=== PATIENT | female | born 1975 | race Caucasian/White ===

== ENCOUNTER 2018-07-22 20:44 | Emergency (ER) | payer OTHER ==
[~2018-07-22] VITALS: Ht 167.6 cm; Wt 99.8 kg
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
[2018-07-22] MEDS ORDERED: KETOROLAC 60 MG/2 ML VIAL IM ONE (22:15)
[2018-07-22] MEDS ORDERED: RX-HYDROCODONE/APAP 5/325 MG #4 TAB PK PO PRN (22:15)
[2018-07-22] MEDS ORDERED: CYCLOBENZAPRINE 10 MG (FLEXERIL) TAB PO SCH (22:15)
[2018-07-22] MEDS ORDERED: TETANUS,DIPTH,PERTUSS P/F (BOOSTRIX) 0.5 ML VIAL IM ONE (22:15)
[2018-07-22] MEDS ORDERED: CYCL10TA9 PO (22:16)
[2018-07-22] MEDS ORDERED: ACHD5005 PO (22:16)
[2018-07-22] MEDS ORDERED: IBUP-1780 PO (22:16)
[2018-07-22 22:38] VITALS: BP 136/73
== END 2018-07-22 22:44 | disposition home or self-care (01) ==
LOC: ER FS 20:46
DX: S46.812A Strain of other muscles, fascia and tendons at shoulder and upper arm level, left arm, initial encounter (principal); S50.812A Abrasion of left forearm, initial encounter; F17.210 Nicotine dependence, cigarettes, uncomplicated; V86.05XA Driver of 3- or 4- wheeled all-terrain vehicle (ATV) injured in traffic accident, initial encounter
CPT/HCPCS: 73030; 90715

== ENCOUNTER → 2019-01-19 | Outpatient (CLI) | payer OTHER ==
[~2019-01-19] MED LIST: ACHD5005 PO; CYCL10TA9 PO; IBUP-1780 PO
--- NOTE | 2019-01-19 16:29 | Diagnostic Imaging Report ---
INDICATION: Right shoulder injury. FINDINGS: Two views of the right shoulder show no fracture, dislocation, or other acute abnormalities. IMPRESSION: Negative right shoulder. Dictated by: Dictated on workstation # [id number]
== END ==
LOC: RAD FS 15:44
PROVIDERS: ATTEND Nurse Practitioner Family
DX: S49.91XA Unspecified injury of right shoulder and upper arm, initial encounter (principal)
CPT/HCPCS: 73030

== ENCOUNTER → 2019-02-09 | Outpatient (CLI) | payer OTHER ==
--- NOTE | 2019-02-09 17:51 | Diagnostic Imaging Report ---
INDICATION: Right knee pain. Three views were obtained. FINDINGS: The alignment is normal. There are mild degenerative changes. There is no fracture or dislocation. The soft tissues are unremarkable. IMPRESSION: Mild degenerative changes; otherwise, unremarkable. Dictated by: Dictated on workstation # [id number]
== END ==
LOC: RAD FS 16:32
PROVIDERS: ATTEND Family Medicine
DX: M17.11 Unilateral primary osteoarthritis, right knee (principal)
CPT/HCPCS: 73562

== ENCOUNTER → 2019-02-23 | Outpatient (CLI) | payer OTHER ==
--- NOTE | 2019-02-23 13:37 | Diagnostic Imaging Report ---
INDICATION: Osteoarthritis. TIME OF EXAM: 10:43 AM 2 views of the patella were obtained. There is significant patellofemoral degenerative change. Large osteophyte along the lateral aspect of the patella is noted. Patellofemoral alignment is normal. No fractures are seen. There is no joint effusion. IMPRESSION: Patellofemoral degenerative change. No acute bony abnormality is detected. Dictated by: Dictated on workstation # [id number]
== END ==
LOC: RAD FS 10:36
PROVIDERS: ATTEND Nurse Practitioner
DX: M17.11 Unilateral primary osteoarthritis, right knee (principal)
CPT/HCPCS: 73560

== ENCOUNTER → 2019-03-25 | Outpatient (CLI) | payer OTHER ==
--- NOTE | 2019-03-25 11:31 | Diagnostic Imaging Report ---
EXAMINATION: Magnetic resonance imaging of the right knee without intravenous contrast. DATE: March 25, 2019. COMPARISON: Right knee radiographs February 09, 2019. INDICATION: 44-year-old female, right knee pain. TECHNIQUE: Multiplanar, multisequence noncontrast enhanced MR imaging was accomplished. FINDINGS: MENISCI: The medial meniscus is intact. The lateral meniscus is intact. LIGAMENTS AND TENDONS: The anterior and posterior cruciate ligaments are intact. The medial collateral ligament is intact. The iliotibial band, mid third lateral capsular ligament, fibular collateral ligament, biceps femoris tendon, and conjoined tendon are intact. The quadriceps tendon and patella ligament are intact. JOINT: There is approximately 50% generalized thinning of the patellar cartilage of the superficial irregularity of the cartilage. There is also mild generalized cartilage loss and irregularity of the femoral trochlea. The lateral compartment cartilage is grossly intact. There is mild generalized thinning of the medial compartment cartilage. There is no knee joint effusion, prominent synovitis, or intra-articular body. BONE: There is degenerative related marrow edema in the patella. There is an ossification adjacent to the lateral patellar margin which is long-standing. There is no identified acute fracture. There is no evidence of osteonecrosis. BURSAE AND SOFT TISSUES: There is no Bakers cyst. There is nonspecific prepatellar subcutaneous edema. IMPRESSION: 1. Intact menisci and cruciate ligaments. Additional ligaments and tendons are intact. 2. Moderate patellofemoral and mild medial compartment osteoarthritis without knee joint effusion. 3. 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 No acute fracture or evidence of osteonecrosis. Dictated by: Dictated on workstation # [id number]
== END ==
LOC: RAD 09:59
PROVIDERS: ATTEND Nurse Practitioner
DX: M23.41 Loose body in knee, right knee (principal); M17.11 Unilateral primary osteoarthritis, right knee
CPT/HCPCS: 73721

== ENCOUNTER 2019-07-03 11:09 | Emergency (ER) | payer OTHER ==
[~2019-07-03] VITALS: Ht 170 cm; Wt 83.9 kg
--- OUTSIDE RECORDS SUMMARY | 2019-07-03 11:17 | XMS REPORT ---
Author Author GENE Griseldameghan David [facility] Address [address] [place] [address] Care Team Providers Care Education Specialist Name Role Phone YOEL MILLS Unavailable PROBLEMS Type Condition ICD9-CM Code CEM68-TS Code Onset Dates Condition S tatus SNOMED Code Problem Osteoarthritis of right knee 715.96 Jun, 2 0 [id number] Problem Plantar fasciitis of right foot 728.71 Sep, 0 [id number] Problem Vaginal pain 625.9 Nov, 0 3834 3000 Problem Acute sinusitis 461.9 Jan, 0 1 1366446 Problem Peroneal tendonitis M76.70 Sep, 0 84890280 Problem Tobacco use 305.1 16 May, 2016 0 32191 3000 Problem Other nonspecific abnormal cardiovascular system function study 794.39 0 439395408 Problem Abdominal pain, right lower quadrant R10.31 Sep, 0 212857069 Problem Asthma 493.90 May, 0 1324181 01 Problem Plantar fasciitis, right M72.2 Sep, 0 78976026 Problem Extrinsic asthma, unspecified J45.909 0 618149937 Problem Pain of right thumb 729.5 Jan, 0 77864028 Problem 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 Sep, 0 83256261 Problem Postoperative follow-up V67.00 Sep, 0 749794245 Problem Back pain with radiation 724.5 Nov, 0 134849405 Problem Posterior tibial tendonitis 726.72 Sep, 0 89942178 Problem Acute cholecystitis 575.0 0 51642014 Problem Polymyalgia rheumatica 725 0 23444946 Problem Extrinsic asthma, unspecified 493.00 0 983576627 Problem Plantar fasciitis of right foot M72.2 Sep, 0 47769038150804726 Problem Esophageal reflux 530.81 0 24 3104179 Problem Asthma J45.909 13 May, 2011 0 0826855 01 Problem Other nonspecific abnormal cardiovascular system function study R94.39 0 804530005 Problem Precordial pain R07.2 0 7188 4009 Problem Other synovitis and tenosynovitis M65.80 0 816306497 Problem Tobacco use Z72.0 May, 0 10037 3000 Problem Insufficiency of posterior tibialis tendon 727.89 18 Sep, 2014 0 Problem Acute cholecystitis K81.0 0 52621263 Problem Peroneal tendonitis 726.79 04 Sep, 2014 0 57299664 Problem Polymyalgia rheumatica M35.3 0 91466792 Problem Plantar fasciitis, right 728.71 18 Sep, 2014 0 16770351 Problem Adnexal cyst 625.8 03 Sep, 2012 0 9717 7968121893 Problem Osteoarthritis of right knee M17.11 Jun, 2 0 774842661 Problem Back pain with radiation M54.9 Nov, 0 462195612 Problem Precordial pain 786.51 0 7188 4009 Problem Posterior tibial tendonitis M76.829 04 Sep, 2014 0 83471126 Problem OAB (overactive bladder) N32.81 Activ e 231484935 Problem Abdominal pain, right lower quadrant 789.03 02 Sep, 2012 0 568829462 Problem Vaginal pain R10.2 Nov, 0 3834 3000 Problem Pain of right thumb M79.644 Jan, 0 29882706 Problem Other synovitis and tenosynovitis 727.09 0 239553648 Problem Esophageal reflux K21.9 0 24 4062498 Problem Cigarette nicotine dependence, uncomplicated 305.1 May, 0 746178558 Problem Adnexal cyst N94.9 Sep, 0 9717 0845427990 Problem Acute sinusitis J01.90 Jan, 0 1 3718135 Problem Postoperative follow-up Z09 10 Sep, 2012 0 234878531 Problem Cigarette nicotine dependence, uncomplicated F17.2 10 May, 0 623309316 ALLERGIES No Known Allergies ENCOUNTERS Encounter Location Date Diagnosis [address] [id number] Jun, [address] [address] Jun, [address] [address] Jun, OAB (overactive bladder) N32.81 [facility] [address] [facility] [id number] [address] [place] [id number] Mar, [facility] [address] [facility] [id number] [address] [place] [id number] Jan, [facility] [address] [facility] [id number] [address] [place] [id number] Jan, [facility] [address] [facility] [id number] [address] [place] [phone] Jun, IMMUNIZATIONS No Known Immunizations SOCIAL HISTORY Never Assessed REASON FOR VISIT bladder issues PLAN OF CARE Activity Details Follow Up prn Reason: VITAL SIGNS Height 5'6" in 2018-06-11 Weight 216 lbs 2018-06-11 BMI 34.86 kg/m2 2018-06-11 Blood pressure systolic 116 mmHg 2018-06-11 Blood pressure diastolic 66 mmHg 2018-06-11 MEDICATIONS Medication Instructions Dosage Frequency Start Date End Date Duration S tatus Myrbetriq 25 MG Orally Once a day 1 tablet 24h Jun, 30 day(s) Active RESULTS Name Result Date Reference Range UA LONG DIP (IN HOUSE) Lot # [id number] Exp date 04/07/19 Clarity clear Color yellow Odor no GLU neg MARIAN neg KET neg SG 1.015 BLO trace-intact pH 6.0 Protein neg URO 0.2 NIT neg JOSSE neg Lot # [id number] Exp date 04/07/19 PROCEDURES Procedure Date Ordered Result Body Site URINALYSIS, AUTO, W/O SCOPE June 11, 2018 INSTRUCTIONS MEDICATIONS ADMINISTERED No Known Medications MEDICAL (GENERAL) HISTORY Type Description Date Surgical History hysterectomy
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
[2019-07-03 12:03] LABS: INR 0.9 (0.8-1.4); PROTHROMBIN TIME PATIENT 12.8 SEC (12.2-14.7)
[2019-07-03 12:04] LABS: BASOPHILS % (AUTO) 0 % (0-10); EOSINOPHILS % (AUTO) 2 % (0-10); HEMATOCRIT 37 % (35-52); HEMOGLOBIN 12.6 G/DL (11.5-16.0); LYMPHOCYTES % (AUTO) 15 % (12-44); MEAN CORPUSCULAR HEMOGLOBIN 32 PG (25-34); MEAN CORPUSCULAR HGB CONC 34 G/DL (32-36); MEAN CORPUSCULAR VOLUME 93 FL (80-99); MONOCYTES % (AUTO) 5 % (0-12); NEUTROPHILS % (AUTO) 77 % (42-75); PLATELET COUNT 277 10^3/uL (130-400); RED CELL DISTRIBUTION WIDTH 12.2 % (10.0-14.5); WHITE BLOOD COUNT 10.2 10^3/uL (4.3-11.0)
[2019-07-03 12:05] LABS: EOSINOPHILS # (AUTO) 0.2 10^3/uL (0.0-0.3); LYMPHOCYTES # (AUTO) 1.5 X 10^3 (1.0-4.0); MONOCYTES # (AUTO) 0.5 X 10^3 (0.0-1.0); NEUTROPHILS # (AUTO) 7.8 X 10^3 (1.8-7.8)
--- NOTE | 2019-07-03 12:05 | Diagnostic Imaging Report ---
Indication: Chest pain. Findings: Lungs clear. Heart and vessels normal. No failure, effusion or pneumothorax. Impression: No acute-appearing abnormality. Dictated by: Dictated on workstation # [id number]
[2019-07-03 12:12] LABS: POTASSIUM 3.8 MMOL/L (3.6-5.0); SODIUM 143 MMOL/L (135-145)
[2019-07-03 12:13] LABS: ALANINE AMINOTRANSFERASE 14 U/L (0-55); ALBUMIN 4.3 GM/DL (3.2-4.5); ALKALINE PHOSPHATASE 71 U/L (40-136); BILIRUBIN,TOTAL 0.4 MG/DL (0.1-1.0); BUN/CREATININE RATIO 26; CALCIUM 9.3 MG/DL (8.5-10.1); CARBON DIOXIDE 26 MMOL/L (21-32); CHLORIDE 104 MMOL/L (98-107); CREATININE SERUM 0.66 MG/DL (0.60-1.30); GFR ESTIMATED > 60; GLUCOSE 98 MG/DL (70-105); MAGNESIUM 1.8 MG/DL (1.6-2.4); TOTAL PROTEIN 6.9 GM/DL (6.4-8.2)
[2019-07-03] MEDS ORDERED: ANTACID SUSP 30 ML UDC (MYLANTA) PO ONE (12:15)
[2019-07-03] MEDS ORDERED: PANTOPRAZOLE 40 MG (PROTONIX) TAB PO ONE (12:15)
--- NOTE | 2019-07-03 12:23 | ED Cardiac General ---
History of Present Illness General Chief Complaint: Chest Pain Stated Complaint: CHEST PAIN; LT ARM NUMBNESS Source: patient Exam Limitations: no limitations History of Present Illness Date Seen by Provider: Jul 03, 2019 Time Seen by Provider: 11:40 Initial Comments 44-year-old female presents to the emergency room with 5 day history of chest pain and discomfort. Patient admits to having reflux esophagitis. She states the pain is been under anterior chest wall and on her left chest. She has no radiation to the back or to the left neck her left arm. He however states that her left arm sometimes is numb. Patient states that she did have a full cardiac workup including cardiac catheter a few years ago" and told this examiner that she had no evidence of cardiac disease. Patient does admit to smoking. She also has severe periodontal disease and multiple caries nonocclusive surfaces in her mouth. Patient denies any history of renal or cardiac disease. She does admit to having asthma in the past. Patient was strongly encouraged to stop smoking and diagnostic evaluation was pursued. Patient has given informed consent for diagnostic and therapeutic services. Timing/Duration: 1 week Severity: moderate Location: substernal, epigastric Activities at Onset: activity, other (ingestion of food) Prior CP/Workup: cardiac cath ("a few years ago" and patient reports no cardiopulmonary or coronary disease) Modifying Factors: improves with antacids (given in the emergency room) NTG SL RETORT ENGINEER: No ASA po RETORT ENGINEER: No (in light of reflux esopha) Associated Systoms: Chest Pain, Nausea/Vomiting (only nausea) Allergies and Home Medications Allergies Coded Allergies: No Known Drug Allergies (Unverified , 07/22/18) Home Medications Cyclobenzaprine HCl 10 Mg Tablet, 10 MG PO Q8H PRN for SPASMS Prescribed by: DONATO YARBROUGHRT on 07/22/182215 Hydrocodone Bit/Acetaminophen 1 Tab Tab, 1 EACH PO Q6H PRN for PAIN-SEVERE Prescribed by: DONATO YARBROUGHRT on 07/22/182215 Ibuprofen 800 Mg Tablet, 800 MG PO Q8H PRN for PAIN Prescribed by: DONATO YARBROUGHRT on 07/22/182215 Patient Home Medication List Home Medication List Reviewed: Yes Review of Systems Review of Systems Constitutional: malaise, weakness EENTM: No Symptoms Reported, Mouth Pain (very poor oral hygiene with multiple caries and periodontal disease) Respiratory: No Symptoms Reported Cardiovascular: See HPI, Chest Pain Gastrointestinal: Abdominal Pain, Nausea, Other (epigastric discomfort) Genitourinary: No Symptoms Reported Musculoskeletal: back pain Skin: no symptoms reported Psychiatric/Neurological: Anxiety Endocrine: No Symptoms Reported Hematologic/Lymphatic: No Symptoms Reported Past Hpqszjy-Treyrk-Idoxfq Hx Past Med/Social Hx: Reviewed Nursing Past Med/Soc Hx Patient Social History Alcohol Use: Occasionally Uses Recreational Drug Use: No Type Used: Cigarettes 2nd Hand Smoke Exposure: No Recent Foreign Travel: No Contact w/Someone Who Travel: No Recent Hopitalizations: No Seasonal Allergies Seasonal Allergies: No Past Medical History Surgeries: No Respiratory: No Cardiac: No Neurological: No Genitourinary: No Gastrointestinal: No Musculoskeletal: No Endocrine: No HEENT: No Cancer: No Psychosocial: No Integumentary: No Blood Disorders: No Physical Exam Vital Signs Capillary Refill : Height, Weight, BMI Height: 5'6.00" Weight: 220lbs. oz. 99.561175wb; BMI Method:Stated General Appearance: WD/WN (obese), Moderate Distress (from epigastric and anterior chest wall pain), Obese HEENT: PERRL/EOMI, TMs Normal, Normal ENT Inspection (with severe dental periodontal and carious lesions), Pharynx Normal Neck: Full Range of Motion, Normal Inspection, Non Tender, Supple Respiratory: Chest Non Tender, Lungs Clear, Normal Breath Sounds, No Accessory Muscle Use, No Respiratory Distress (patient has a history of smoking and demonstrates poor tolerance) Cardiovascular: Regular Rate, Rhythm, No Edema, No Gallop, No JVD, No Murmur, Normal Peripheral Pulses Gastrointestinal: Normal Bowel Sounds, No Organomegaly, No Pulsatile Mass, Non Tender, Soft Rectal: Normal Exam, Heme Negative Stool Neurologic/Psychiatric: Alert, Oriented x3, No Motor/Sensory Deficits, Normal Mood/Affect, medical reception II-XII Norm as Tested Skin: Normal Color, Warm/Dry Lymphatic: No Adenopathy Progress/Results/Core Measures Results/Orders Lab Results Laboratory Tests Test 07/03/19 11:22 07/03/19 12:21 Range/Units White Blood Count 10.2 4.3-11.0 10^3/uL Red Blood Count 3.96 L 4.35-5.85 10^6/uL Hemoglobin 12.6 11.5-16.0 G/DL Hematocrit 37 35-52 % Mean Corpuscular Volume 93 80-99 FL Mean Corpuscular Hemoglobin 32 25-34 PG Mean Corpuscular Hemoglobin Concent 34 32-36 G/DL Red Cell Distribution Width 12.2 10.0-14.5 % Platelet Count 277 130-400 10^3/uL Mean Platelet Volume 10.0 7.4-10.4 FL Neutrophils (%) (Auto) 77 H 42-75 % Lymphocytes (%) (Auto) 15 12-44 % Monocytes (%) (Auto) 5 0-12 % Eosinophils (%) (Auto) 2 0-10 % Basophils (%) (Auto) 0 0-10 % Neutrophils # (Auto) 7.8 1.8-7.8 X 10^3 Lymphocytes # (Auto) 1.5 1.0-4.0 X 10^3 Monocytes # (Auto) 0.5 0.0-1.0 X 10^3 Eosinophils # (Auto) 0.2 0.0-0.3 10^3/uL Basophils # (Auto) 0.0 0.0-0.1 10^3/uL Prothrombin Time 12.8 12.2-14.7 SEC INR Comment 0.9 0.8-1.4 Activated Partial Thromboplast Time 27 24-35 SEC Sodium Level 143 135-145 MMOL/L Potassium Level 3.8 3.6-5.0 MMOL/L Chloride Level 104 98-107 MMOL/L Carbon Dioxide Level 26 21-32 MMOL/L Anion Gap 13 5-14 MMOL/L Blood Urea Nitrogen 17 7-18 MG/DL Creatinine 0.66 0.60-1.30 MG/DL Estimat Glomerular Filtration Rate > 60 BUN/Creatinine Ratio 26 Glucose Level 98 70-105 MG/DL Calcium Level 9.3 8.5-10.1 MG/DL Corrected Calcium 9.1 8.5-10.1 MG/DL Magnesium Level 1.8 1.6-2.4 MG/DL Total Bilirubin 0.4 0.1-1.0 MG/DL Aspartate Amino Transf (AST/SGOT) 17 5-34 U/L Alanine Aminotransferase (ALT/SGPT) 14 0-55 U/L Alkaline Phosphatase 71 40-136 U/L Myoglobin 44.3 10.0-92.0 NG/ML Troponin I < 0.30 <0.30 NG/ML Total Protein 6.9 6.4-8.2 GM/DL Albumin 4.3 3.2-4.5 GM/DL Urine Opiates Screen NEGATIVE NEGATIVE Urine Oxycodone Screen NEGATIVE NEGATIVE Urine Methadone Screen NEGATIVE NEGATIVE Urine Propoxyphene Screen NEGATIVE NEGATIVE Urine Barbiturates Screen NEGATIVE NEGATIVE Ur Tricyclic Antidepressants Screen NEGATIVE NEGATIVE Urine Phencyclidine Screen POSITIVE H NEGATIVE Urine Amphetamines Screen NEGATIVE NEGATIVE Urine Methamphetamines Screen NEGATIVE NEGATIVE Urine Benzodiazepines Screen NEGATIVE NEGATIVE Urine Cocaine Screen NEGATIVE NEGATIVE Urine Cannabinoids Screen NEGATIVE NEGATIVE My Orders Orders - MELINA YOUNG DO Cbc With Automated Diff (07/03/19 11:42) Magnesium (07/03/19 11:42) Chest 1 View Ap/Pa Only (07/03/19 11:42) Ekg Tracing (07/03/19 11:42) Comprehensive Metabolic Panel (07/03/19 11:42) Myoglobin Serum (07/03/19 11:42) Protime With Inr (07/03/19 11:42) Partial Thromboplastin Time (07/03/19 11:42) O2 (07/03/19 11:42) Monitor-Rhythm Ecg Trace Only (07/03/19 11:42) Lipid Panel (07/04/19 06:00) Ed Iv/Invasive Line Start (07/03/19 11:42) Troponin I Fs (07/03/19 11:42) Drug Screen Stat (Urine) (07/03/19 12:15) Cbc And Manual Diff (07/03/19 12:15) Comprehensive Metabolic Panel (07/03/19 12:15) Antacid Suspension (Mylanta Suspension (07/03/19 12:15) Pantoprazole Tablet (Protonix Tablet) (07/03/19 12:15) Medications Given in ED Current Medications Medications Dose Ordered Sig/Polly Route Start Time Stop Time Status Last Admin Dose Admin Al Hydrox/Mg Hydrox/Simethicone 30 ml ONCE ONCE PO 07/03/19 12:15 07/03/19 12:18 DC 07/03/19 12:27 30 ML Pantoprazole Sodium 40 mg ONCE ONCE PO 07/03/19 12:15 07/03/19 12:18 DC 07/03/19 12:26 40 MG Progress Progress Note : Time: 12:54 Progress Note 12:54 PM patient feels much better states that the epigastric pain is resolved. She has been given 30 cc of Mylanta and 40 mg of pantoprazole. Patient states that she would like to continue on the medication. She understands she has severe periodontal disease and needs to have this patient treated by dental. Patient was also found to be positive for PCP but has no explanation as to how this could be. Follow up care with Dr. syed for continued gastroesophageal reflux disorder with possible esophagitis. The patient has continued symptoms she should receive a gastroesophageal examination. Patient is discharged in satisfactory condition. Initial ECG Impression Date: Jul 03, 2019 Initial ECG Impression Time: 11:10 Initial ECG Rate: 87 Initial ECG Intervals: Normal (with evidence of possible inferior infarct in the past however cardiac catheter was negative on previous evaluation) Initial ECG Impression: Normal (with Q waves in 23 [address] but no ST-T wave changes) Departure Impression Primary Impression: Gastroesophageal reflux disease Additional Impressions: Indigestion Chest wall pain Disposition: 01 HOME, SELF-CARE Condition: Improved (was much better with the pantoprazole and Mylanta) Departure-Patient Inst. Decision time for Depature: 12:57 Referrals: YOEL SYED MD (PCP/Family) Primary Care Physician Patient Instructions: Chest Pain That Is Not Caused by the Heart (DC), Dyspepsia (DC), Acid Reflux (Gastroesophageal Reflux Disease) During Add. Discharge Instructions: 44-year-old female presents with epigastric and anterior chest wall pain. Patient also had numbness in her left arm however cardiac evaluation was negative. Patient had dramatic improvement with pantoprazole and Mylanta. She wants to continue on proton pump inhibitors and will take [id number] Mylanta as needed. Patient was strongly encouraged to stop using tobacco and to seek dental services for her severe periodontal and dental carry disease. Patient will follow-up with Dr. Syed All discharge instructions reviewed with patient and/or family. Voiced understanding. Scripts Omeprazole (Omeprazole) 40 Mg Capsule. 40 MG PO DAILY for 14 Days, CAP Prov: MELINA YOUNG DO 07/03/19 Copy Copies To 1: YOEL SYED MD, ANTHONY H DO Jul 03, 2019 12:23
[2019-07-03 12:44] LABS: AMPHETAMINE SCREEN, URINE NEGATIVE (NEGATIVE); BARBITURATE SCREEN URINE NEGATIVE (NEGATIVE); BENZODIAZEPINES SCREEN URINE NEGATIVE (NEGATIVE); CANNABINOID SCREEN, URINE NEGATIVE (NEGATIVE); COCAINE SCREEN URINE NEGATIVE (NEGATIVE); METHADONE STAT NEGATIVE (NEGATIVE); METHAMPHETAMINE SCREEN URINE S NEGATIVE (NEGATIVE); OPIATE SCREEN URINE NEGATIVE (NEGATIVE); OXYCODONE STAT NEGATIVE (NEGATIVE); PROPOXYPHENE STAT NEGATIVE (NEGATIVE); TRICYCLIC ANTIDEPRESSANTS SCRE NEGATIVE (NEGATIVE)
[2019-07-03 13:00] VITALS: BP 126/63
[2019-07-03] MEDS ORDERED: OMEP40CA27 PO (13:00)
== END 2019-07-03 13:10 | disposition home or self-care (01) ==
LOC: EDUNIT# 11:09 → ER FS 11:11
DX: K21.9 Gastro-esophageal reflux disease without esophagitis (principal); K30 Functional dyspepsia; R07.89 Other chest pain; F17.210 Nicotine dependence, cigarettes, uncomplicated; K02.9 Dental caries, unspecified
CPT/HCPCS: 36415; 71045; 80053; 80306; 83735; 83874; 84484; 85007; 85025; 85610; 85730; 93041

== ENCOUNTER 2021-01-09 19:50 | Emergency (ER) | payer SELFPAY ==
[~2021-01-09] VITALS: Ht 167.7 cm; Wt 110.0 kg
[~2021-01-09 19:50] MED LIST changes: +OMEP40CA6 PO
--- OUTSIDE RECORDS SUMMARY | 2021-01-09 19:53 | XMS REPORT | Clinical Summary ---
Author Author [facility] Organization [facility] Address Unknown Phone Unavailable Care Team Providers Care Starch Mangle Tender Name Role Phone Oneal Sheldon DO PCP Sundeep Campos DO Unavailable Source Comments Some departments are not documenting in the electronic medical record. If you d o not see the information that you expected, contact Release of Information in [facility] [place] Information Management department at [phone] for further assistan ce in locating additional records.[facility] Allergies No Known Active Allergies Medications End Date Status Medication Sig Dispensed Refills Start Date Active estrogens, conjugated(+) Daily. 0 06/05 (PREMARIN) 0.625 mg/g 8 vaginal cream Active famotidine (PEPCID) 20 mg Take 1 Tab by 60 1 tablet mouth Twice 8 Daily. Active Problems Problem Noted Date Atypical chest pain 06/05/2007 GERD (gastroesophageal reflux disease) 06/05/2007 Obesity 06/05/2007 Family History Medical History Relation Name Comments Arthritis-osteo Neg Hx Arthritis-rheumatoid Neg Hx Asthma Neg Hx Cancer Neg Hx Depression Neg Hx Diabetes Neg Hx Heart Failure Neg Hx High Cholesterol Neg Hx Hypertension Neg Hx Migraines Neg Hx Rashes/Skin Problems Neg Hx Seizures Neg Hx Stroke Neg Hx Thyroid Disease Neg Hx Social History Date Tobacco Use Types Packs/Day Years Used Never Smoker Comments Alcohol Use Standard Drinks/Week No 0 (1 standard drink = 0.6 o z pure alcohol) Sex Assigned at Date Recorded Not on file Last Filed Vital Signs Reading Time Taken Comments Vital Sign 118/70 06/06/2007 11:00 AM PRACTICE OFFICE ASSOCIATE Blood Pressure 69 06/06/2007 11:00 AM PRACTICE OFFICE ASSOCIATE Pulse 36.1 C (97 F) 06/06/2007 11:00 AM PRACTICE OFFICE ASSOCIATE Temperature - - Respiratory Rate 95% 06/06/2007 11:00 AM PRACTICE OFFICE ASSOCIATE Oxygen Saturation - - Inhaled Oxygen Concentration 108.9 kg (240 lb) 06/06/2007 6:00 AM PRACTICE OFFICE ASSOCIATE Weight - - Height - - Body Mass Index Plan of Treatment Health Maintenance Due Date Last Done Comments HIV SCREENING 01/16/1988 DTAP/TDAP VACCINES (1 - 1991 Tdap) HEPATITIS C SCREENING 1991 PHYSICAL (COMPREHENSIVE) 1991 EXAM CERVICAL CANCER SCREENING 1994 BREAST CANCER SCREENING 2013 INFLUENZA VACCINE 11/06/2020 Results Not on filefrom Last 3 Months
--- NOTE | 2021-01-09 20:06 | ED Upper Extremity ---
General Chief Complaint: Upper Extremity Stated Complaint: FALL,RT ARM PAIN Source: patient Exam Limitations: no limitations History of Present Illness Date Seen by Provider: Jan 09, 2021 Time Seen by Provider: 19:51 Initial Comments 45-year-old female qdtiy-ophz-emgrflxt with past medical history of asthma coming in after she tripped and fell on her right hand outstretched with immediate pain in her right wrist. Happened about 30 minutes prior to arrival. Took 2 Advil afterwards. Pain is better with rest and worse with movements. Otherwise denying any other acute complaints. Did not hit her head or pass out. Denies any neck pain. Allergies and Home Medications Allergies Coded Allergies: No Known Drug Allergies (Unverified , 07/22/18) Patient Home Medication List Home Medication List Reviewed: Yes Cyclobenzaprine HCl (Cyclobenzaprine HCl) 10 Mg Tablet, 10 MG PO Q8H PRN for SPASMS Prescribed by: DONATO ROSAS on 07/22/18 221 Hydrocodone Bit/Acetaminophen (Lortab 5 Mg Tablet) 1 Tab Tab, 1 EACH PO Q6H PRN for PAIN-SEVERE Prescribed by: DONATO ROSAS on 07/22/18 221 Ibuprofen (Ibuprofen) 800 Mg Tablet, 800 MG PO Q8H PRN for PAIN Prescribed by: DONATO ROSAS on 07/22/18 221 Omeprazole (Omeprazole) 40 Mg Capsule.dr, 40 MG PO DAILY Prescribed by: MELINA YOUNG on 07/03/19 1300 Review of Systems Constitutional: No chills, No dizziness EENTM: No blurred vision Respiratory: No cough, No short of breath Cardiovascular: No chest pain Gastrointestinal: No abdominal pain, No nausea, No vomiting Genitourinary: no symptoms reported Musculoskeletal: joint pain Skin: no symptoms reported Psychiatric/Neurological: No Symptoms Reported All Other Systems Reviewed Negative Unless Noted: Yes Past Firhoom-Isdygp-Wtsczx Hx Patient Social History Tobacco Use?: Yes Substance use?: No Alcohol Use?: No Seasonal Allergies Seasonal Allergies: No Past Medical History Surgeries: Yes Hysterectomy Respiratory: No Cardiac: No Neurological: No Genitourinary: No Gastrointestinal: No Musculoskeletal: No Endocrine: No HEENT: No Cancer: No Psychosocial: No Integumentary: No Blood Disorders: No Physical Exam Vital Signs Capillary Refill : Height, Weight, BMI Height: 5'6.00" Weight: 220lbs. oz. 99.893656zb; 29.00 BMI Method:Stated General Appearance: WD/WN, no apparent distress HEENT: PERRL/EOMI, normal ENT inspection, pharynx normal Neck: non-tender, full range of motion, supple, normal inspection Cardiovascular: regular rate, rhythm, no edema, no murmur Respiratory: chest non-tender, lungs clear, normal breath sounds, no respiratory distress, no accessory muscle use Gastrointestinal: normal bowel sounds, non tender, soft; No guarding Back: normal inspection, no CVA tenderness, no vertebral tenderness Shoulder: normal inspection, non-tender, no evidence of injury, normal ROM Elbow/Forearm: normal inspection, non-tender, no evidence of injury, normal ROM Wrist: Yes bone tenderness, Yes limited ROM, Yes pain, Yes swelling Hand: normal inspection, non-tender (No tenderness over the scaphoid), no evidence of injury, normal ROM Neurologic/Tendon: normal sensation, normal motor functions, normal tendon functions Neurologic/Psychiatric: no motor/sensory deficits, alert, normal mood/affect Skin: normal color, warm/dry Lymphatic: no adenopathy Progress/Results/Core Measures Progress Progress Note : Progress Note Vascularly -bbwo-uxz female with above history coming in after falling on her right wrist. ABCs were intact and vitals were stable on presentation. T ashlee over the right distal radius. X-ray ordered and interpreted by me showing a transverse distal radius fracture that is in good position. Act including specific testing of the radial, ulnar, and median nerves. I placed a prefabricated splint with an darrel bandage. She will need follow-up with orthopedics. She was discharged home in stable condition with strict return precautions Diagnostic Imaging Diagonstic Imaging: Xray Plain Films/CT/US/NM/MRI: other (Wrist) Comments 3 views of the left wrist x-ray ordered and interpreted by me showing a transverse fracture of the distal left radius in good position Departure Impression Primary Impression: Radial fracture Qualified Codes: S52.551A - Other extraarticular fracture of lower end of right radius, initial encounter for closed fracture Disposition: HOME, SELF-CARE Condition: Stable Departure-Patient Inst. Decision time for Depature: 20:07 Referrals: YOEL MILLS MD (PCP/Family) Primary Care Physician TAVO CALIX MD Patient Instructions: Radius Fracture (DC) Add. Discharge Instructions: He broke the radius bone in your right wrist. Fortunately, it is in good position. Keep that splint on at all times. Follow-up with an orthopedic doctor, and if you cannot do this then follow-up with your primary care doctor within the next 3 days. It would be best if you get a formal cast put on, but if you are unable to thin you could potentially wear that splint for the next 3 weeks. If you have worsening pain, new fall, or any other concerns and come back to the ER. Take 40 mg of ibuprofen every 6 hours and 1000 Kirsten of Tylenol every 6-8 hours if you have pain. You can also ice it, but try to keep the splint from getting wet. All discharge instructions reviewed with patient and/or family. Voiced understanding. OLENA BAKER MD Jan 09, 2021 20:06
--- NOTE | 2021-01-09 20:09 | Diagnostic Imaging Report ---
INDICATION: Fall, pain. FINDINGS: There is a horizontal fracture through the distal radial metadiaphyseal junction. No significant impaction or foreshortening. No angulation or rotary component. No involvement of the articular surface. The distal ulna intact. IMPRESSION: A nondisplaced horizontal distal radial metadiaphyseal junction fracture without significant impaction, displacement or angulation. Dictated by: Dictated on workstation # [id number]
[2021-01-09 20:26] VITALS: BP 147/66
== END 2021-01-09 20:26 | disposition home or self-care (01) ==
LOC: EDUNIT# 19:50 → ER FS 19:51
DX: S52.391A Other fracture of shaft of radius, right arm, initial encounter for closed fracture (principal); W01.0XXA Fall on same level from slipping, tripping and stumbling without subsequent striking against object, initial encounter
CPT/HCPCS: 29125; 73110

== ENCOUNTER → 2021-01-25 | Outpatient (CLI) | payer SELFPAY ==
--- NOTE | 2021-01-25 11:09 | Diagnostic Imaging Report ---
INDICATION: Right wrist fracture followup. FINDINGS: Two views of the right wrist through a cast show a healing fracture of the distal radius. Satisfactory and stable alignment compared to the 01/09/2021 study. There has been some healing since the prior exam. Healing is incomplete. IMPRESSION: There is a healing transverse fracture of the distal radius which is in satisfactory alignment. Dictated by: Dictated on workstation # [id number]
== END ==
LOC: RAD FS 10:11
PROVIDERS: ATTEND Nurse Practitioner
DX: S52.501D Unspecified fracture of the lower end of right radius, subsequent encounter for closed fracture with routine healing (principal)
CPT/HCPCS: 73100

== ENCOUNTER → 2021-02-10 | Outpatient (CLI) | payer SELFPAY ==
--- NOTE | 2021-02-10 09:56 | Diagnostic Imaging Report ---
INDICATION: Followup fracture. COMPARISON: 01/09/2021 FINDINGS: 3 radiographic views of the right wrist were obtained. Again identified is nonacute transitory fractures through the distal radius. Since the previous exam, there has been interval development of subtle sclerotic change abutting the fracture line. Fracture line however remains conspicuous. No new acute fracture dislocation right wrist is seen. Joint spaces are appropriate. IMPRESSION: 1. Redemonstration of partially healed fracture of the distal right radius as described above. Dictated by: Dictated on workstation # [id number]
== END ==
LOC: RAD FS 09:25
PROVIDERS: ATTEND Nurse Practitioner
DX: S52.591D Other fractures of lower end of right radius, subsequent encounter for closed fracture with routine healing (principal); X58.XXXD Exposure to other specified factors, subsequent encounter
CPT/HCPCS: 73110

== ENCOUNTER 2022-06-18 05:10 | Emergency (ER) | payer BC ==
[~2022-06-18] VITALS: Ht 167.7 cm; Wt 100.6 kg
[~2022-06-18 05:10] MED LIST changes: +CYCL10TA25 PO; -CYCL10TA9 PO
--- NOTE | 2022-06-18 05:29 | ED General ---
General Chief Complaint: Allergic Reaction Stated Complaint: HIVES Source of Information: Patient Exam Limitations: No Limitations History of Present Illness Date Seen by Provider: Jun 18, 2022 Time Seen by Provider: 05:17 Initial Comments 47-year-old female coming in due to 1 hour of itchy hives. Over her entire body, nothing really seems to make it better or worse, she has not taken any medicines for it as of yet. He states this is happened before with the last episode about a year ago, and has happened multiple times prior to that even. She is never been able to figure out what causes it. Denies any wheezing, throat swelling, GI upset, or any other symptoms associated with it Allergies and Home Medications Allergies Coded Allergies: No Known Drug Allergies (Unverified , 07/22/18) Patient Home Medication List Home Medication List Reviewed: Yes Cyclobenzaprine HCl (Cyclobenzaprine HCl) 10 Mg Tablet, 10 MG PO Q8H PRN for SPASMS Prescribed by: DONATO ROSAS on 07/22/18 221 Hydrocodone Bit/Acetaminophen (Lortab 5 Mg Tablet) 1 Tab Tab, 1 EACH PO Q6H PRN for PAIN-SEVERE Prescribed by: DONATO ROSAS on 07/22/18 221 Ibuprofen (Ibuprofen) 800 Mg Tablet, 800 MG PO Q8H PRN for PAIN Prescribed by: DONATO ROSAS on 07/22/18 221 Omeprazole (Omeprazole) 40 Mg Capsule.dr, 40 MG PO DAILY Prescribed by: MELINA YOUNG on 07/03/19 1300 Review of Systems Review of Systems Constitutional: No fever EENTM: no symptoms reported Respiratory: no symptoms reported Cardiovascular: no symptoms reported Gastrointestinal: no symptoms reported Genitourinary: no symptoms reported Musculoskeletal: no symptoms reported Skin: see HPI Psychiatric/Neurological: No Symptoms Reported Past Tlzbuzs-Vrfdjk-Yuchhc Hx Patient Social History Tobacco Use?: Yes Smoking Status: Current Everyday Smoker Substance use?: No Alcohol Use?: No Pt feels they are or have been: No Seasonal Allergies Seasonal Allergies: No Past Medical History Surgeries: Yes Hysterectomy Respiratory: No Cardiac: No Neurological: No Genitourinary: No Gastrointestinal: No Musculoskeletal: No Endocrine: No HEENT: No Cancer: No Psychosocial: No Integumentary: No Blood Disorders: No Physical Exam Vital Signs Vital Signs - First Documented 06/18/22 05:17 Temp 37.1 Pulse 102 Resp 20 B/P (MAP) 130/87 (101) Pulse Ox 98 O2 Delivery Room Air Capillary Refill : Height, Weight, BMI Height: 5'6.00" Weight: 220lbs. oz. [id number]; 39.00 BMI Method:Stated General Appearance: No Apparent Distress, WD/WN Eyes: Bilateral Eye Normal Inspection HEENT: PERRL/EOMI, Normal ENT Inspection, Pharynx Normal Neck: Full Range of Motion, Normal Inspection, Non Tender, Supple Respiratory: Chest Non Tender, Lungs Clear, Normal Breath Sounds, No Accessory Muscle Use, No Respiratory Distress Cardiovascular: Regular Rate, Rhythm, No Edema, Normal Peripheral Pulses Gastrointestinal: Normal Bowel Sounds, Non Tender, Soft; No Distended, No Guarding Back: Normal Inspection, No CVA Tenderness Extremity: Normal Capillary Refill, Normal Inspection, Normal Range of Motion, Non Tender, No Calf Tenderness, No Pedal Edema Neurologic/Psychiatric: Alert, No Motor/Sensory Deficits, Normal Mood/Affect Skin: Rash (Blanching urticaria scattered throughout the body) Lymphatic: No Adenopathy Progress/Results/Core Measures Suspected Sepsis SIRS Temperature: Pulse: Respiratory Rate: Blood Pressure / Mean: Results/Orders My Orders Orders - OLENA BAKER MD Diphenhydramine Injection (Benadryl Inje (06/18/22 05:30) Famotidine Tablet (Pepcid Tablet) (06/18/22 05:30) Dexamethasone Oral Soln (Ed) (Decadron I (06/18/22 05:23) Medications Given in ED Current Medications Medications Dose Ordered Sig/Polly Route Start Time Stop Time Status Last Admin Dose Admin Diphenhydramine HCl 25 mg ONCE ONCE IM 06/18/22 05:30 06/18/22 05:31 DC 06/18/22 05:32 25 MG Famotidine 40 mg ONCE ONCE PO 06/18/22 05:30 06/18/22 05:31 DC 06/18/22 05:32 40 MG Vital Signs/I&O 06/18/22 05:17 Temp 37.1 Pulse 102 Resp 20 B/P (MAP) 130/87 (101) Pulse Ox 98 O2 Delivery Room Air Capillary Refill : Progress Note : Progress Note 47-year-old female with above history presenting for urticaria. ABCs were intact and vitals were stable on presentation. There are only skin findings and its not consistent with anaphylaxis clinically. Additionally, this has happened in the past raising the concern for potentially idiopathic urticaria versus medication related versus some other etiology. She was given IM Benadryl as well as p.o. Pepcid and Decadron. Symptoms improved and patient continued to not have any signs of anaphylaxis on reassessment. I believe she is stable for discharge with outpatient follow-up. She was sent home with strict return precautions. Departure Impression Primary Impression: Urticaria Disposition: HOME, SELF-CARE Condition: Improved Departure-Patient Inst. Decision time for Depature: 06:30 Referrals: SELF,YOEL HALL (PCP/Family) Primary Care Physician Patient Instructions: Hives Add. Discharge Instructions: This is possibly an allergy to something else figured out yet versus sometimes just happens out of nowhere we never figure out what the cause of the hives is. Vlox-[id number] Zyrtec is probably her best option to help with these. If you develop hives with significant wheezing/shortness of breath, vomiting, throat swelling, or any other significant concerns then please come back to the ER. Otherwise, they are not dangerous by themselves and you can follow-up with your regular doctor. If you do develop hives with the vomiting or wheezing then we would want you to use the EpiPen that was sent to your pharmacy. If you use an EpiPen, please immediately come to the ER after. Scripts Epinephrine (Epipen 2-Jericho) 0.3 Mg/0.3 Ml Auto.injct 0.3 MG IJ Q20M PRN for anaphylaxis for 1 Day, #1 EA Prov: OLENA BAKER MD 06/18/22 Work/School Note: Family Work Note, Patient Received Medical Care In the Emergency Department On: Jun 18, 2022 Patient Will Be Able to Return to Work/School On: Jun 19, 2022 Work Release Form Date Seen in the Emergency Department: Jun 18, 2022 Return to Work: Jun 19, 2022 Restrictions: No Restrictions OLENA BAKER MD Jun 18, 2022 05:29
[2022-06-18] MEDS ORDERED: diphenhydrAMINE 50 MG/ML INJ (BENADRYL) IM ONE (05:30)
[2022-06-18] MEDS ORDERED: FAMOTIDINE 20 MG (PEPCID) TABLET PO ONE (05:30)
[2022-06-18] MEDS ORDERED: EPIN0.3P3 IJ (06:26)
[2022-06-18 06:28] VITALS: BP 126/82
== END 2022-06-18 06:29 | disposition home or self-care (01) ==
LOC: EDUNIT# 05:10 → ER FS 05:14
DX: L50.9 Urticaria, unspecified (principal); F17.200 Nicotine dependence, unspecified, uncomplicated; Z28.310 Unvaccinated for COVID-19
CPT/HCPCS: 99284

== ENCOUNTER 2022-08-06 23:09 | Emergency (ER) | payer BC, OTHER ==
[~2022-08-06] VITALS: Ht 167.7 cm; Wt 99.7 kg
[~2022-08-06 23:09] MED LIST changes: +EPIN0.3P3 IJ
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
[2022-08-07] MEDS ORDERED: IBUP-1780 PO (00:03)
[2022-08-07 00:20] VITALS: BP 111/78
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
--- NOTE | 2022-08-07 14:40 | Diagnostic Imaging Report ---
INDICATION: Pain FINDINGS: 2 view left femur performed. No fracture, dislocation or acute articular irregularity. IMPRESSION: No acute appearing abnormality. Dictated by: Dictated on workstation # [id number]
== END 2022-08-07 00:20 | disposition home or self-care (01) ==
LOC: EDUNIT# 23:12 → ER FS 23:14
DX: S20.212A Contusion of left front wall of thorax, initial encounter (principal); S70.11XA Contusion of right thigh, initial encounter; S70.12XA Contusion of left thigh, initial encounter; E66.9 Obesity, unspecified; F17.210 Nicotine dependence, cigarettes, uncomplicated; Z68.35 Body mass index [BMI] 35.0-35.9, adult; Z28.310 Unvaccinated for COVID-19; V89.2XXA Person injured in unspecified motor-vehicle accident, traffic, initial encounter; Y92.410 Unspecified street and highway as the place of occurrence of the external cause
CPT/HCPCS: 71046; 73552